=== PATIENT | male | born 1975 | race Caucasian/White ===

== ENCOUNTER 2017-07-27 10:28 | Emergency (ER) | payer OTHER ==
[~2017-07-27] VITALS: Ht 177.8 cm; Wt 121.1 kg
[2017-07-27 10:55] LABS: URINE BILIRUBIN NEGATIVE (Negative); URINE BLOOD NEGATIVE (Negative); URINE COLOR YELLOW; URINE GLUCOSE-RANDOM* NEGATIVE (Negative); URINE KETONES NEGATIVE (Negative); URINE NITRITE NEGATIVE (Negative); URINE PROTEIN (DIPSTICK) TRACE (Negative); URINE UROBILINOGEN 0.2 E.U./dl (0.2-1.0)
[2017-07-27] MEDS ORDERED: PREDNISONE 20 M20 M1 PO (11:31)
[2017-07-27] MEDS ORDERED: CYCLOBENZAPRINE5 MG PO (11:31)
[2017-07-27] MEDS ORDERED: ROXICODONE5 M2 PO (11:33)
[2017-07-27 11:47] VITALS: BP 140/99
== END 2017-07-27 11:48 | disposition home or self-care (01) ==
LOC: ER 10:28
PROVIDERS: Physician Assistant
DX: M54.5 Low back pain (principal); I10 Essential (primary) hypertension